=== PATIENT | female | born 1960 | race Caucasian/White ===

== ENCOUNTER 2017-07-13 09:40 | Outpatient (CLI) | payer OTHER ==
--- NOTE | 2017-07-13 10:17 | BD ---
BONE DENSITOMETRY USING DEXA: Date: 07/13/17 HISTORY: Postmenopausal screening for osteoporosis. FINDINGS: Lumbar Spine: BMD (g/cm2) L1 1.040 T-Score: 0.5 Z-Score: 1.4 L2 1.190 T-Score: 1.5 Z-Score: 2.6 L3 1.171 T-Score: 0.8 Z-Score: 2.0 L4 1.167 T-Score: 1.0 Z-Score: 2.2 L1-L4 1.143 T-Score: 0.9 Z-Score: 2.0 Femoral Neck: 0.674 T-Score: -1.6 Z-Score: -0.6 Total Femur: 0.814 T-Score: -1.1 Z-Score: -0.3 IMPRESSION: Osteopenia. POS: OFF
--- NOTE | 2017-07-13 11:47 | MMO ---
BILATERAL SCREENING MAMMOGRAMS: DATE: 07/13/17 Reference made to prior mammograms dating back to September 2011. This patient's mammogram was interpreted with the assistance of computer-aided detection. FINDINGS: Scattered fibroglandular elements are present bilaterally. There remains diffuse, stable appearing c alcification throughout each breast. There is no new dominant mass or architectural distortion. IMPRESSION: BIRADS 2: Benign Finding(s) Annual screening mammography is recommended. POS: JAQUAN
== END 2017-07-13 09:41 | disposition home or self-care (01) ==
LOC: MAMMO 09:40
PROVIDERS: ATTEND Obstetrics & Gynecology
DX: Z12.31 Encounter for screening mammogram for malignant neoplasm of breast (principal); Z13.820 Encounter for screening for osteoporosis; M81.0 Age-related osteoporosis without current pathological fracture; M85.859 Other specified disorders of bone density and structure, unspecified thigh
CPT/HCPCS: 77067; 77080; G0202

== ENCOUNTER 2017-11-21 10:03 | Outpatient (CLI) | payer OTHER ==
--- NOTE | 2017-11-21 11:39 | ULT ---
RIGHT UPPER QUADRANT ULTRASOUND: Date: 11/21/17 HISTORY: Other specified abnormal findings of bladder, right upper quadrant pain. FINDINGS: The liver demonstrates homogeneous echotexture without focal mass or intrahepatic ductal dilatation. No gallstones, gallbladder wall thickening, or pericholecystic fluid is seen. The common duct measure s 5.0 mm in diameter. Right kidney is unremarkable. No free fluid is seen in Morison's pouch. Pancrea s is not well visualized due to overlying bowel gas. IMPRESSION: No evidence of cholelithiasis. POS: MADIEH
== END 2017-11-21 10:04 | disposition home or self-care (01) ==
LOC: ULT 10:03
PROVIDERS: ATTEND Internal Medicine Rheumatology
DX: R93.3 Abnormal findings on diagnostic imaging of other parts of digestive tract (principal)
CPT/HCPCS: 76705

== ENCOUNTER 2018-07-31 13:43 | Outpatient (CLI) | payer OTHER | END 2018-07-31 13:44 | disposition home or self-care (01) | LOC: BICMAMMO 13:43 | PROVIDERS: ATTEND Obstetrics & Gynecology | DX: Z12.31 Encounter for screening mammogram for malignant neoplasm of breast (principal); Z80.3 Family history of malignant neoplasm of breast | CPT/HCPCS: 77063; 77067 ==

== ENCOUNTER 2018-10-11 08:55 | Outpatient (CLI) | payer OTHER ==
--- NOTE | 2018-10-11 10:31 | BD ---
DEXA BONE DENSITY SCAN: 10/11/2018 HISTORY: Postmenopausal female, under screening for osteoporosis. COMPARISON: 07/13/2017 FINDINGS: LUMBAR SPINE BMD (g/cm2) T-SCORE PREVIOUS L1 1.024 0.3 0.5 L2 1.169 1.3 1.5 L3 1.181 0.9 0.8 L4 1.155 0.9 1.0 TOTAL 1.137 0.8 0.9 FEMORAL NECK 0.648 -1.8 -1.6 TOTAL 0.815 -1.0 -1.1 FRAX: The WHO Fracture Risk Assessment Tool is not reported, as the patient reports being treated fo r osteoporosis. IMPRESSION: 1. Normal lumbar spine bone mineral density. 2. Osteopenia of the femoral neck, correlating with a moderately increased risk for fracture. POS: JAQUAN
== END 2018-10-11 08:56 | disposition home or self-care (01) ==
LOC: BICMAMMO 08:55
PROVIDERS: ATTEND Internal Medicine Rheumatology
DX: Z13.820 Encounter for screening for osteoporosis (principal); M81.0 Age-related osteoporosis without current pathological fracture; M85.859 Other specified disorders of bone density and structure, unspecified thigh
CPT/HCPCS: 77080

== ENCOUNTER 2019-08-14 14:49 | Outpatient (CLI) | payer OTHER ==
--- NOTE | 2019-08-14 15:10 | MMO ---
Bilateral MAMMO Bilat Screen [facility]. CLINICAL HISTORY: Patient is 59 years old and is seen for screening. The patient has no personal history of cancer. VIEWS: The views performed were: bilateral craniocaudal with tomosynthesis and bilateral mediolateral oblique with tomosynthesis. FILMS COMPARED: The present examination has been compared to prior imaging studies performed at [facility] on 09/22/2007, 09/23/2008, 10/08/2009 and 07/31/2018. This study has been interpreted with the assistance of computer-aided detection. MAMMOGRAM FINDINGS: There are scattered fibroglandular densities. There are stable benign appearing calcifications seen in both breasts. There are no suspicious masses, suspicious calcifications, or new areas of architectural distortion. IMPRESSION: THERE IS NO MAMMOGRAPHIC EVIDENCE OF MALIGNANCY. A ROUTINE FOLLOW-UP MAMMOGRAM IN 1 YEAR IS RECOMMENDED. THE RESULTS OF THIS EXAM WERE SENT TO THE PATIENT. ACR BI-RADS Category 2 - Benign finding MAMMOGRAPHY NOTE: 1. A negative mammogram report should not delay a biopsy if a dominant of clinically suspicious mass is present. 2. Approximately 10% to 15% of breast cancers are not detected by mammography. 3. Adenosis and dense breasts may obscure an underlying neoplasm. Reported by: CLAUDIO SMIHT MD Electonically Signed: [id number]
== END 2019-08-14 14:50 | disposition home or self-care (01) ==
LOC: BICMAMMO 14:49
PROVIDERS: ATTEND Obstetrics & Gynecology
DX: Z12.31 Encounter for screening mammogram for malignant neoplasm of breast (principal)
CPT/HCPCS: 77063; 77067

== ENCOUNTER 2019-09-04 07:46 | Outpatient (CLI) | payer OTHER ==
[2019-09-04 10:48] LABS: Bacteria/HPF None Seen HPF (None Seen); Bilirubin Negative (Negative); Blood, Urine Negative (Negative); Clarity Clear (Clear); Glucose, Urine (Dipstick) Normal (Negative); Leukocyte Negative Leu/uL (Negative); Nitrite Negative (Negative); Protein, Urine (Dipstick) Negative (Neg-Trace); RBC/HPF 0-3 HPF (0-3); Squamous Epithelial 0-3 HPF (0-3); Urobilinogen Normal mg/dL (Less than 2); WBC/HPF 0-3 HPF (0-3)
[2019-09-05 08:43] LABS: Anion Gap 11 mmol/L (10-20); BUN (Urea Nitrogen) 8 mg/dL (9.8-20.1); Calc. Creatinine Clearance 0 mL/min (70-130); Calcium 9.1 mg/dL (7.8-10.44); Carbon Dioxide 25 mmol/L (22-29); Chloride 108 mmol/L (98-107); Estimated GFR-MDRD 81; Glucose 94 mg/dL (70-105); Potassium 3.9 mmol/L (3.5-5.1); Sodium 140 mmol/L (136-145)
[2019-09-05 08:45] LABS: Prothrombin Time 12.7 SEC (12.0-14.7)
[2019-09-05 09:52] LABS: #Basophils 0.1 thou/uL (0.0-0.2); #Eosinphils 0.2 thou/uL (0.0-0.7); #Monocytes 0.7 thou/uL (0.11-0.59); #Neutrophils 4.2 thou/uL (1.40-6.50); %Basophils 0.9 % (0.0-1.0); %Eosinophils 3.1 % (0.0-10.0); %Lymphocytes 28.4 % (21.0-51.0); %Monocytes 9.4 % (0.0-10.0); %Neutrophils 58.2 % (42.0-75.0); Hemoglobin 14.1 g/dL (12.0-16.0); Large Platelets MODERATE; MDiff Complete? YES; Mean Corpuscular HGB CONC 33.2 g/dL (32.0-36.0); Mean Corpuscular Hemoglobin 32.3 pg (27.0-31.0); Mean Corpuscular Volume 97.4 fL (78.0-98.0); Mean Platelet Volume 14.2 fL (7.4-10.4); Platelet Count 96 thou/uL (130-400); Platelet Morphology Comment Appears Adequate; RBC Distribution Width 12.7 % (11.5-14.5); Red Blood Cell (RBC) Count 4.35 mill/uL (4.20-5.40); White Blood Cell (WBC) Count 7.2 thou/uL (4.8-10.8)
== END 2019-09-04 07:47 | disposition home or self-care (01) ==
LOC: LABBT 07:46
PROVIDERS: ATTEND Orthopaedic Surgery
DX: Z01.818 Encounter for other preprocedural examination (principal); T84.093A Other mechanical complication of internal left knee prosthesis, initial encounter
CPT/HCPCS: 80048; 81001; 85025; 85610; 93005; 93010

== ENCOUNTER 2019-09-04 09:00 | Inpatient (IN) | payer OTHER ==
[2019-09-04 09:25] VITALS: BMI 35.0
[2019-09-13] MEDS ORDERED: Ropivacaine 0.2% HCl/PF 20 ML ONE (07:25)
[2019-09-13] MEDS ORDERED: Midazolam HCl 2 mg/2 ml Vial ONE ×2 (07:25→08:24)
[2019-09-13] MEDS ORDERED: Lidocaine 1% (PF) 30 ML VIAL ONE (07:25)
[2019-09-13] MEDS ORDERED: Fentanyl 100 MCG/2 ML VIAL ONE ×5 (07:25→11:54)
[2019-09-13] MEDS ORDERED: Vancomycin HCl 1.5 GM in Sodium Chloride 0.9% 250 ML 300 ML IVPB SCH (07:30)
[2019-09-13] MEDS ORDERED: Tranexamic Acid 1,000 MG/10 ML VIAL ONE (07:38)
[2019-09-13] MEDS ORDERED: Promethazine HCl 25 MG/ML VIAL SLOW IVP PRN ×2 (09:51→11:57)
[2019-09-13] MEDS ORDERED: Ondansetron HCl/PF 4 MG/2 ML Vial IVP PRN ×2 (09:51→11:57)
[2019-09-13] MEDS ORDERED: Promethazine HCl 25 MG/ML VIAL IM PRN ×5 (09:51→12:51)
[2019-09-13] MEDS ORDERED: Bupivacaine HCl 0.5%/Epinephrine 1:200,000/PF 30 ml Vial ONE (11:36)
[2019-09-13] MEDS ORDERED: PROPOFOL 200 MG/20 ML VIAL ONE (11:36)
[2019-09-13] MEDS ORDERED: Ondansetron PF 4 MG/2 ML Vial ONE (11:36)
[2019-09-13] MEDS ORDERED: Ropivacaine 0.2% HCl/PF (40 MG/20 ML VIAL) ONE (11:36)
[2019-09-13] MEDS ORDERED: Ropivacaine 0.5% HCl/PF (150 MG/30 ML VIAL) ONE (11:36)
[2019-09-13] MEDS ORDERED: Lidocaine 1% PF 5 ML VIAL ONE (11:36)
[2019-09-13] MEDS ORDERED: Zolpidem Tartrate 5 MG TAB PO PRN ×3 (11:44→12:51)
[2019-09-13] MEDS ORDERED: HYDROcodone/Acetaminophen 10/325 mg Tablet PO PRN ×4 (11:44→12:19)
[2019-09-13] MEDS ORDERED: diphenhydrAMINE 25 MG CAP PO PRN ×2 (11:44→12:51)
[2019-09-13] MEDS ORDERED: Ondansetron PF 4 MG/2 ML Vial IVP PRN ×3 (11:44→12:51)
[2019-09-13] MEDS ORDERED: Acetaminophen 325 MG TAB PO PRN (11:44)
[2019-09-13] MEDS ORDERED: Fentanyl 100 MCG/2 ML VIAL SLOW IVP PRN ×2 (11:44→12:27)
[2019-09-13] MEDS ORDERED: Vancomycin HCl 1 GM in Premix Bag 1 BAG IVPB SCH (11:45)
[2019-09-13] MEDS ORDERED: Ketorolac Tromethamine 30 MG/ML VIAL ONE (11:55)
[2019-09-13] MEDS ORDERED: HYDROmorphone 2 MG/ML VIAL SLOW IVP PRN (11:57)
[2019-09-13] MEDS ORDERED: HYDROmorphone 0.5 MG/0.5 ML SYRINGE ONE ×4 (12:11→13:05)
[2019-09-13] MEDS ORDERED: Ropivacaine HCl/PF 250 ML in Premix Bag 1 BAG NERVE BLCK SCH (12:13)
[2019-09-13] MEDS ORDERED: traMADol HCl 50 MG TAB PO PRN ×2 (12:19)
[2019-09-13] MEDS ORDERED: Fentanyl 100 MCG/2 ML VIAL IV PRN (12:20)
--- NOTE | 2019-09-13 12:33 | RAD ---
XR Knee Lt 2 View: 09/13/2019 11:46 AM CLINICAL INDICATION: Postoperative left knee COMPARISON: None. FINDINGS: Bones: No acute fracture is demonstrated. Joints: There is been interval placement of a constrained left total knee prosthesis. Prosthetic comp onents project in expected position. There is intra-articular and periarticular soft tissue gas present consistent with the patient's recent postoperative state.. Soft Tissue: No acute abnormality.. IMPRESSION: Postoperative left knee.
[2019-09-13] MEDS ORDERED: HYDROmorphone 2 MG/ML VIAL ONE (12:41)
[2019-09-13] MEDS ORDERED: diphenhydrAMINE 50 MG/ML VIAL IM/IV PRN (12:51)
[2019-09-13] MEDS ORDERED: Naloxone HCl 0.4 mg/ml Vial IV PRN (12:51)
[2019-09-13] MEDS ORDERED: Ketorolac Tromethamine 30 MG/ML VIAL IVP SCH ×2 (14:00→18:00)
--- NOTE | 2019-09-13 15:28 | OP ---
DATE OF PROCEDURE: 09/13/2019 PROCEDURE PERFORMED: Left revision total knee arthroplasty using [place] Triathlon Revision, femur size 3 with a 15 mm x 150 stem, a size 3 tibia with a 50 mm x 15 stem, medium cement plug, 16 mm TS liner. MALL MANAGER: Jaime Buchanan PA-C. BLOOD LOSS: Minimal. SPECIMEN: None. DRAINS: None. COMPLICATION: None. TOURNIQUET TIME: About 95 minutes. DESCRIPTION OF PROCEDURE: The patient was taken to the operating room, where general anesthesia was induced. Left leg was prepped and draped in the usual sterile fashion. After exsanguination, tourniquet was inflated to 300 mmHg. I opened up the old incision. Dissection was carried down through the extensor mechanism, which was opened proximally and extend distally. I performed complete synovectomy, cleared the gutters, cleared the lateral patella, exposed the anterior portion of the tibia, removed the polyethylene from the tibia and then removed the femur with an oscillating saw. This gave a very good interface and very little bone loss. The tibia was removed with saw and osteotomes again with very little bone loss. I removed the cement mantle from proximal tibia. I reamed the tibia and femur appropriately. I placed the tibial trial and worked my way up to a size 16 poly, which gave good stability in flexion. I then adjusted the femur cut until I got full extension. No augments were required on the femur or the tibia. Trials removed. Irrigation performed. Implants were cemented into place. I did examine the patella. The patella button was loose. The patella previously fractured. There was no remaining tissue to cemented patella button, therefore patella was removed. No additional patella was inserted. Irrigation was performed multiple times throughout the procedure and performed prior to closure. Retinaculum was repaired with #2 Vicryl, #2 Quill, subcu closed with 0 Quill. Skin was closed with Monoderm and a sterile dressing was applied. Job ID: [id number]
[2019-09-13] MEDS ORDERED: Enalaprilat Dihydrate 1.25 MG/ML VIAL SLOW IVP PRN (16:20)
[2019-09-13] MEDS: CEFAZOLIN 2 GM in Premix Bag 1 BAG IVPB SCH ×2 (16:41→22:24)
[2019-09-13] MEDS: Sodium Chloride 0.9% 1,000 ML IV SCH ×2 (16:43→21:14)
[2019-09-13] MEDS ORDERED: Mometasone/Formoterol 120 PUFF INHALER INH SCH (18:30)
[2019-09-13] MEDS: Ketorolac Tromethamine 30 MG/ML VIAL IVP SCH (18:48)
[2019-09-13] MEDS: Ferrous Gluconate 324 MG TAB PO SCH (20:23)
[2019-09-13] MEDS: Aspirin 81 mg Enteric Coated Tablet PO SCH (20:23)
[2019-09-13] MEDS: Montelukast Sodium 10 mg Tablet PO SCH (20:23)
[2019-09-13] MEDS: Senokot S 8.6-50 MG TAB PO SCH (20:23)
--- NOTE | 2019-09-13 23:27 | PDOC.HOSPP ---
- Subjective Encounter Date: 09/13/19 Encounter Time: 16:00 Subjective: Patient seen and examined for med mngt. Pain controlled. No N/V/CP. No new complaints. No overnight events - Objective Vital Signs & Weight: Vital Signs (12 hours) Temp Pulse Resp BP Pulse Ox 09/13/19 20:00 100 09/13/19 19:35 98.8 F 78 16 148/84 H 100 09/13/19 16:00 98 09/13/19 15:40 98.2 F 77 16 132/79 99 Weight Weight 198 lb I&O: 09/12/19 09/13/19 09/14/19 06:59 06:59 06:59 Intake Total 1500 Output Total 500 Balance 1000 Result Diagrams: 09/14/19 04:48 EKG Reviewed by me: Yes (SR) Hospitalist ROS - Review of Systems Respiratory: denies: cough, dry, shortness of breath, hemoptysis, SOB with excertion, pleuritic pain, sputum, wheezing, other Cardiovascular: denies: chest pain, palpitations, orthopnea, paroxysmal noc. dyspnea, edema, light headedness, other - Medication Medications: Active Medications Generic Name Dose Route Start Last Admin Trade Name Freq PRN Reason Stop Dose Admin Aspirin 81 mg 09/13/19 21:00 09/13/19 20:23 Ecotrin PO 81 mg BID DORETHA Administration Ferrous Gluconate 324 mg 09/13/19 21:00 09/13/19 20:23 Fergon PO 324 mg BID DORETHA Administration Cefazolin Sodium/Dextrose 2 gm 50 mls @ 100 mls/hr 09/13/19 15:00 09/13/19 22 :24 / Device IVPB 09/13/19 23:29 50 mls 0700,1500,2300 DORETHA Administration Sodium Chloride 1,000 mls @ 100 mls/hr 09/13/19 11:45 09/13/19 21:14 Normal Saline 0.9% IV Not Given .Q10H DORETHA Ketorolac Tromethamine 30 mg 09/13/19 18:00 09/13/19 18:48 Toradol IVP 09/15/19 12:01 30 mg Q6HR DORETHA Administration Montelukast Sodium 10 mg 09/13/19 21:00 09/13/19 20:23 Singulair PO 10 mg HS DORETHA Administration Senna/Docusate Sodium 2 tab 09/13/19 21:00 09/13/19 20:23 Senokot S PO 2 tab BID DORETHA Administration - Exam General Appearance: NAD Heart: RRR, no gallops, no rubs Respiratory: CTAB, no rales, no ronchi Gastrointestinal: soft, non-tender, normal bowel sounds Extremities: no edema Hosp A/P - Plan DVT proph w/SCDs HTN RA Hypothyroidism Mild int Asthma Anxiety COPD CKD 2 PLAN: Cont Losartan Cont Levothyroxine Add PRN Nebs Cont other meds Will follow. Thank you for this consultation
[2019-09-14] MEDS: Ketorolac Tromethamine 30 MG/ML VIAL IVP SCH ×4 (00:06→18:30)
[2019-09-14] MEDS: HYDROmorphone 10 mg/100 ml CADD IV PRN ×2 (00:07→14:45)
[2019-09-14] MEDS: Levothyroxine Sodium 50 MCG TAB PO SCH (05:38)
[2019-09-14] MEDS: Sodium Chloride 0.9% 1,000 ML IV SCH ×2 (05:40→21:21)
[2019-09-14 06:11] LABS: Hemoglobin 11.4 g/dL (12.0-16.0); Mean Corpuscular HGB CONC 32.8 g/dL (32.0-36.0); Mean Corpuscular Hemoglobin 31.9 pg (27.0-31.0); Mean Corpuscular Volume 97.3 fL (78.0-98.0); Mean Platelet Volume 13.8 fL (7.4-10.4); Platelet Count 67 thou/uL (130-400); RBC Distribution Width 12.2 % (11.5-14.5); Red Blood Cell (RBC) Count 3.58 mill/uL (4.20-5.40); White Blood Cell (WBC) Count 9.8 thou/uL (4.8-10.8)
[2019-09-14] MEDS: Multivitamin W/ Minerals 1 TAB PO SCH (08:07)
[2019-09-14] MEDS: Senokot S 8.6-50 MG TAB PO SCH ×2 (08:07→20:12)
[2019-09-14] MEDS: Ferrous Gluconate 324 MG TAB PO SCH ×2 (08:07→20:12)
[2019-09-14] MEDS: Aspirin 81 mg Enteric Coated Tablet PO SCH ×2 (08:07→20:12)
[2019-09-14] MEDS: Hydroxychloroquine Sulfate 200 MG TAB PO SCH (08:07)
[2019-09-14] MEDS: Losartan 25 MG TAB PO SCH (08:07)
[2019-09-14] MEDS: DULoxetine 30 MG CAP PO SCH (08:07)
[2019-09-14] MEDS ORDERED: BUPROPION HCL PO SCH (09:00)
[2019-09-14] MEDS ORDERED: [UNRECOGNIZED DRUG - OTHER] INH SCH (09:00)
[2019-09-14] MEDS ORDERED: Loratadine 10 MG TAB PO SCH (09:00)
[2019-09-14] MEDS ORDERED: NORETHINDRONE ACET PO SCH (09:00)
[2019-09-14] MEDS ORDERED: ESTRADIOL PO SCH (09:00)
[2019-09-14] MEDS ORDERED: Losartan 25 MG TAB PO SCH ×2 (09:00)
[2019-09-14] MEDS ORDERED: NALTREXONE HCL PO SCH (09:00)
[2019-09-14] MEDS: Montelukast Sodium 10 mg Tablet PO SCH (20:12)
[2019-09-15] MEDS: Ketorolac Tromethamine 30 MG/ML VIAL IVP SCH ×2 (01:11→05:42)
[2019-09-15] MEDS: Sodium Chloride 0.9% 1,000 ML IV SCH (01:17)
[2019-09-15] MEDS: Levothyroxine Sodium 50 MCG TAB PO SCH (05:42)
[2019-09-15 07:40] LABS: Hemoglobin 11.2 g/dL (12.0-16.0); Mean Corpuscular HGB CONC 32.8 g/dL (32.0-36.0); Mean Corpuscular Hemoglobin 32.1 pg (27.0-31.0); Mean Corpuscular Volume 97.8 fL (78.0-98.0); Mean Platelet Volume 13.7 fL (7.4-10.4); Platelet Count 36 thou/uL (130-400); RBC Distribution Width 12.2 % (11.5-14.5); Red Blood Cell (RBC) Count 3.48 mill/uL (4.20-5.40); White Blood Cell (WBC) Count 12.8 thou/uL (4.8-10.8)
[2019-09-15] MEDS: Ferrous Gluconate 324 MG TAB PO SCH (08:55)
[2019-09-15] MEDS: DULoxetine 30 MG CAP PO SCH (08:55)
[2019-09-15] MEDS: Aspirin 81 mg Enteric Coated Tablet PO SCH (08:55)
[2019-09-15] MEDS: Hydroxychloroquine Sulfate 200 MG TAB PO SCH (08:55)
[2019-09-15] MEDS: Multivitamin W/ Minerals 1 TAB PO SCH (08:55)
[2019-09-15] MEDS: Losartan 25 MG TAB PO SCH (08:55)
[2019-09-15] MEDS: Senokot S 8.6-50 MG TAB PO SCH (08:56)
[2019-09-15] MEDS ORDERED: HYDROcodone/Acetaminophen 10/325 mg Tablet PO PRN ×2 (11:44)
[2019-09-15] MEDS ORDERED: traMADol HCl 50 MG TAB PO PRN ×2 (11:45)
[2019-09-15] MEDS ORDERED: Fentanyl 100 MCG/2 ML VIAL SLOW IVP PRN (11:46)
[2019-09-15 15:16] VITALS: BP 133/72; TEMP 98.1
== END 2019-09-15 15:34 | disposition home or self-care (01) | DRG 468 ==
LOC: SJJU 09-13 06:27
PROVIDERS: ADMIT Orthopaedic Surgery; ATTEND Orthopaedic Surgery
PROC: 0SPD0JZ Removal of Synthetic Substitute from Left Knee Joint, Open Approach (ICD-10-PCS; principal; 2019-09-13)
PROC: 0SRD0J9 Replacement of Left Knee Joint with Synthetic Substitute, Cemented, Open Approach (ICD-10-PCS; 2019-09-13)
DX: T84.093A Other mechanical complication of internal left knee prosthesis, initial encounter (principal); M06.9 Rheumatoid arthritis, unspecified; E03.9 Hypothyroidism, unspecified; J45.20 Mild intermittent asthma, uncomplicated; F41.9 Anxiety disorder, unspecified; J44.9 Chronic obstructive pulmonary disease, unspecified; I12.9 Hypertensive chronic kidney disease with stage 1 through stage 4 chronic kidney disease, or unspecified chronic kidney disease; N18.2 Chronic kidney disease, stage 2 (mild); Z96.653 Presence of artificial knee joint, bilateral; Z87.440 Personal history of urinary (tract) infections; Y83.8 Other surgical procedures as the cause of abnormal reaction of the patient, or of later complication, without mention of misadventure at the time of the procedure; M97.12XA Periprosthetic fracture around internal prosthetic left knee joint, initial encounter
CPT/HCPCS: 36415; 85027; C1713; C1776; J0131; J0670; J0690; J1170; J1885; J2001; J2250; J2405; J2704; J2795; J3010

== ENCOUNTER 2019-11-02 15:01 | Outpatient (CLI) | payer OTHER ==
--- NOTE | 2019-11-02 15:38 | BD ---
EXAM: DEXA bone density examination HISTORY: 59-year-old postmenopausal female for screening COMPARISON: None FINDINGS: L1--bone mineral density 0.991 g/sq cm; T score 0.0 L2--bone mineral density 1.178 g/sq cm; T score 1.4 L3--bone mineral density 1.119 g/sq cm; T score 0.3 L4--bone mineral density 1.199 g/sq cm; T score 1.3 Total L1-L4--bone mineral density 1.132 g/sq cm; T score 0.8 Left femoral neck--bone mineral density0.667; T score -1.6 Total proximal left femur--bone mineral density 0.800; T score -1.2 IMPRESSION: Osteopenia This patient has a 10 year WHO fracture risk of a major osteoporotic fracture of 5.3% and of a hip fracture of 0.5%.
== END 2019-11-02 15:02 | disposition home or self-care (01) ==
LOC: BICMAMMO 15:01
PROVIDERS: ATTEND Internal Medicine Rheumatology
DX: M81.0 Age-related osteoporosis without current pathological fracture (principal); M85.852 Other specified disorders of bone density and structure, left thigh
CPT/HCPCS: 77080

== ENCOUNTER 2020-10-13 10:05 | Outpatient (CLI) | payer OTHER | END 2020-10-13 10:06 | disposition home or self-care (01) | LOC: EKG 10:05 | PROVIDERS: ATTEND Plastic Surgery | DX: Z01.818 Encounter for other preprocedural examination (principal) | CPT/HCPCS: 93005; 93010 ==

== ENCOUNTER 2021-01-05 08:18 | Outpatient (CLI) | payer OTHER | END 2021-01-05 08:19 | disposition home or self-care (01) | LOC: BICMAMMO 08:18 | PROVIDERS: ATTEND Internal Medicine Rheumatology | DX: M81.0 Age-related osteoporosis without current pathological fracture (principal); M85.851 Other specified disorders of bone density and structure, right thigh; M85.852 Other specified disorders of bone density and structure, left thigh | CPT/HCPCS: 77080 ==

== ENCOUNTER 2022-09-07 08:02 | Outpatient (CLI) | payer BC | END 2022-09-07 08:03 | disposition home or self-care (01) | LOC: BICMAMMO 08:02 | PROVIDERS: ATTEND Obstetrics & Gynecology | DX: Z12.31 Encounter for screening mammogram for malignant neoplasm of breast (principal); Z80.3 Family history of malignant neoplasm of breast; R92.1 Mammographic calcification found on diagnostic imaging of breast; R92.8 Other abnormal and inconclusive findings on diagnostic imaging of breast | CPT/HCPCS: 77063; 77067 ==

== ENCOUNTER 2023-08-23 08:25 | Outpatient (CLI) | payer BC ==
[2023-08-23 09:34] LABS: Hematocrit 40.1 % (34.9-44.5)
== END 2023-08-23 08:26 | disposition home or self-care (01) ==
LOC: LABBT 08:25
PROVIDERS: ATTEND Specialist
DX: Z01.818 Encounter for other preprocedural examination (principal); J35.01 Chronic tonsillitis
CPT/HCPCS: 85014; 93005; 93010

== ENCOUNTER 2023-08-25 10:46 | Day surgery (SDC) | payer BC ==
[2023-08-23 08:59] VITALS: BMI 32.1
[2023-08-25] MEDS ORDERED: fentaNYL PF 100 MCG/2 ML SYRINGE ONE ×2 (12:34)
[2023-08-25] MEDS ORDERED: Labetalol HCl 100 MG/20 ML VIAL ONE (12:48)
[2023-08-25] MEDS ORDERED: Ondansetron PF 4 MG/2 ML Vial ONE (12:48)
[2023-08-25] MEDS ORDERED: Succinylcholine 200 MG/10 ml SYRINGE FS ONE (12:48)
[2023-08-25] MEDS ORDERED: Dexamethasone 20 MG/5 ML VIAL ONE (12:48)
[2023-08-25] MEDS ORDERED: PROPOFOL 200 MG/20 ML VIAL ONE (12:48)
[2023-08-25] MEDS ORDERED: Lidocaine 1% PF 5 ML VIAL ONE (12:48)
[2023-08-25] MEDS ORDERED: ePHEDrine Sulfate 50 MG/10 ML VIAL ONE (12:50)
[2023-08-25] MEDS ORDERED: fentaNYL 50 mcg/mL 1 mL Vial ONE ×2 (13:15→13:29)
[2023-08-25] MEDS ORDERED: Hydrocodone-Acetamin 15 ML UDCUP ONE (15:29)
== END 2023-08-25 15:54 | disposition home or self-care (01) ==
LOC: SDC 10:46
PROVIDERS: ATTEND Specialist
PROC: 0CBPXZZ Excision of Tonsils, External Approach (ICD-10-PCS; principal; 2023-08-25)
DX: J35.01 Chronic tonsillitis (principal); I10 Essential (primary) hypertension; J45.909 Unspecified asthma, uncomplicated; E03.9 Hypothyroidism, unspecified; Z96.653 Presence of artificial knee joint, bilateral; Z79.890 Hormone replacement therapy; Z79.899 Other long term (current) drug therapy
CPT/HCPCS: 88304; J1100; J2405; J2704; J3010

== ENCOUNTER 2023-09-01 08:16 | Day surgery (SDC) | payer BC ==
[2023-09-01] MEDS ORDERED: Tranexamic Acid 1,000 MG/10 ML VIAL ONE (08:33)
[2023-09-01] MEDS ORDERED: Ondansetron PF 4 MG/2 ML Vial ONE ×3 (08:49→11:05)
[2023-09-01] MEDS ORDERED: Racepinephrine 2.25% 0.5 ML NEB ONE (08:59)
[2023-09-01 09:06] LABS: #Basophils 0.1 thou/uL (0.0-0.2); #Eosinphils 0.3 thou/uL (0.0-0.7); #Monocytes 0.8 thou/uL (0.11-0.59); #Neutrophils 6.4 thou/uL (1.40-6.50); %Basophils 0.5 % (0.0-1.0); %Eosinophils 3.1 % (0.0-10.0); %Lymphocytes 29.4 % (21.0-51.0); %Monocytes 7.6 % (0.0-10.0); Hematocrit 36.4 % (36.0-47.0); Hemoglobin 12.3 g/dL (12.0-16.0); Mean Corpuscular HGB CONC 33.8 g/dL (32.0-36.0); Mean Corpuscular Hemoglobin 32.5 pg (27.0-31.0); Platelet Count 172 10x3/uL (130-400); RBC Distribution Width 12.6 % (11.5-14.5); Red Blood Cell (RBC) Count 3.79 mill/uL (4.20-5.40); White Blood Cell (WBC) Count 10.9 10x3/uL (4.8-10.8)
[2023-09-01 09:11] LABS: Mean Platelet Volume 14.1 fL (7.4-10.4)
[2023-09-01 09:21] LABS: Anion Gap 15 mmol/L (10-20); BUN (Urea Nitrogen) 9 mg/dL (9.8-20.1); Calc. Creatinine Clearance 0 mL/min (70-130); Calcium 9.2 mg/dL (7.8-10.44); Carbon Dioxide 23 mmol/L (23-31); Chloride 104 mmol/L (98-107); Estimated GFR 98; Glucose 170 mg/dL (80-115); Potassium 3.3 mmol/L (3.5-5.1); Sodium 139 mmol/L (136-145)
[2023-09-01 10:18] LABS: RBC Morph Comment Within Normal Limits
[2023-09-01 10:19] LABS: Large Platelets MODERATE (None Seen); Small Platelets MODERATE HPF (0-15)
[2023-09-01] MEDS ORDERED: Ferric Subsulfate 8 ML TOPICAL SOLN ONE (10:26)
[2023-09-01] MEDS ORDERED: PROPOFOL 20 ML ONE (10:27)
[2023-09-01] MEDS ORDERED: fentaNYL PF 100 MCG/2 ML SYRINGE ONE (10:27)
[2023-09-01] MEDS ORDERED: Succinylcholine 200 MG/10 ml SYRINGE FS ONE ×2 (10:35→11:05)
[2023-09-01] MEDS ORDERED: Dexamethasone 20 MG/5 ML VIAL ONE ×2 (10:35→11:05)
[2023-09-01] MEDS ORDERED: Lidocaine 1% PF 5 ML VIAL ONE ×2 (10:49→11:05)
[2023-09-01 10:55] LABS: INR-International Normal Ratio 1.1; PTT 31.9 sec (22.9-36.1); Prothrombin Time 14.3 sec (12.0-14.7)
[2023-09-01] MEDS ORDERED: Labetalol HCl 100 MG/20 ML VIAL ONE ×2 (11:05→11:22)
[2023-09-01] MEDS ORDERED: PROPOFOL 200 MG/20 ML VIAL ONE (11:05)
[2023-09-01] MEDS ORDERED: fentaNYL 50 mcg/mL 1 mL Vial ONE (12:05)
[2023-09-01] MEDS ORDERED: Hydrocodone-Acetamin 15 ML UDCUP ONE (12:34)
== END 2023-09-01 13:10 | disposition home or self-care (01) ==
LOC: ERS 08:16 → SDC 10:40
PROVIDERS: ATTEND Specialist
PROC: 0W330ZZ Control Bleeding in Oral Cavity and Throat, Open Approach (ICD-10-PCS; principal; 2023-09-01)
DX: J95.831 Postprocedural hemorrhage of a respiratory system organ or structure following other procedure (principal); I10 Essential (primary) hypertension
CPT/HCPCS: 36415; 80048; 85025; 85610; 85730; 86850; 86900; 86901; 96361; 96374; J1100; J2405; J2704; J3010

== ENCOUNTER 2024-05-08 07:30 | Outpatient (CLI) | payer BC | END 2024-05-08 07:31 | disposition home or self-care (01) | LOC: BICULT 07:30 | PROVIDERS: ATTEND Internal Medicine | DX: N39.0 Urinary tract infection, site not specified (principal); R93.5 Abnormal findings on diagnostic imaging of other abdominal regions, including retroperitoneum | CPT/HCPCS: 76700; 76856 ==

== ENCOUNTER 2024-07-16 08:23 | Outpatient (CLI) | payer BC | END 2024-07-16 08:24 | disposition home or self-care (01) | LOC: BICMAMMO 08:23 | PROVIDERS: ATTEND Internal Medicine Rheumatology | DX: M81.0 Age-related osteoporosis without current pathological fracture (principal); M85.851 Other specified disorders of bone density and structure, right thigh; M85.852 Other specified disorders of bone density and structure, left thigh | CPT/HCPCS: 77080 ==

== ENCOUNTER 2025-04-10 07:45 | Outpatient (CLI) | payer BC ==
[2025-04-10] MEDS ORDERED: Iopamidol 370 76% 100 ML VIAL ONE (12:37)
== END 2025-04-10 07:46 | disposition home or self-care (01) ==
LOC: CT 07:45
PROVIDERS: ATTEND Nurse Practitioner Family
DX: C25.1 Malignant neoplasm of body of pancreas (principal); D69.59 Other secondary thrombocytopenia; D70.8 Other neutropenia; K43.9 Ventral hernia without obstruction or gangrene; K31.89 Other diseases of stomach and duodenum; J98.4 Other disorders of lung; N20.0 Calculus of kidney; D25.9 Leiomyoma of uterus, unspecified; K42.9 Umbilical hernia without obstruction or gangrene; M47.819 Spondylosis without myelopathy or radiculopathy, site unspecified; M43.16 Spondylolisthesis, lumbar region; K59.00 Constipation, unspecified; K57.10 Diverticulosis of small intestine without perforation or abscess without bleeding; Z90.410 Acquired total absence of pancreas; Z90.81 Acquired absence of spleen
CPT/HCPCS: 71270; 74178; Q9967